=== PATIENT | male | born 1980 | race Hispanic/Latino ===

== ENCOUNTER 2021-06-07 12:11 | Outpatient (CLI) | payer OTHER ==
--- NOTE | 2021-06-07 16:57 | XRay Report ---
XR tibia fibula 2V LT INDICATION / CLINICAL INFORMATION: TIB/FIB PAIN. COMPARISON: None available. FINDINGS: BONES/JOINT(S): No acute fracture or subluxation. There appear to be postsurgical changes in the prox imal tibia, possibly from remote fracture fixation. 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 SOFT TISSUES: No significant abnormality. ADDITIONAL FINDINGS: None. Signer Name: Abelino Austin MD Signed: 06/07/2021 4:52 PM Workstation Name: [id number]
== END 2021-06-07 12:12 | disposition home or self-care (01) ==
LOC: XRAY 12:11
PROVIDERS: ATTEND Internal Medicine
DX: M17.12 Unilateral primary osteoarthritis, left knee (principal)